=== PATIENT | female | born 1945 | race Caucasian/White ===

== ENCOUNTER 2016-08-26 14:02 | Outpatient (CLI) | payer MEDICARE, BC ==
[2016-08-26 18:52] LABS: BASOPHILS # (AUTO) 0.1 10^3/uL (0.0-0.1); BASOPHILS % (AUTO) 0.6 %; EOSINOPHILS # (AUTO) 0.2 10^3/uL (0.0-0.7); EOSINOPHILS % (AUTO) 1.9 %; HCT - HEMATOCRIT 42.3 % (37.0-47.0); HGB - HEMOGLOBIN 14.2 g/dL (12.0-16.0); LYMPHOCYTES # (AUTO) 2.8 10^3/uL (1.5-3.5); LYMPHOCYTES % (AUTO) 29.6 %; MEAN CORPUSCULAR HEMOGLOBIN 30.1 pg (27.0-31.0); MEAN CORPUSCULAR HGB CONC 33.6 g/dL (32.0-36.0); MEAN CORPUSCULAR VOLUME 89.4 fL (81.0-99.0); MEAN PLATELET VOLUME 8.6 fL (7.9-10.8); MONOCYTES # (AUTO) 0.7 10^3/uL (0.0-1.0); MONOCYTES % (AUTO) 7.3 %; NEUTROPHILS # (AUTO) 5.8 10^3/uL (1.5-6.6); NEUTROPHILS % (AUTO) 60.6 %; RED BLOOD COUNT 4.73 10^6/uL (4.20-5.40); RED CELL DISTRIBUTION WIDTH 12.7 % (12.0-15.0); UNCORRECTED WHITE BLOOD COUNT 9.5 x10^3/uL; WHITE BLOOD COUNT 9.5 x10^3/uL (4.8-10.8)
[2016-08-26 19:11] LABS: HEMOGLOBIN A1C 1.06 g/dL
[2016-08-26 19:17] LABS: ALBUMIN/GLOBULIN RATIO 1.3 (1.0-2.2); BILIRUBIN,TOTAL 1.6 mg/dL (0.2-1.0); BUN - BLOOD UREA NITROGEN 21 mg/dL (6-20); CALCIUM 9.8 mg/dL (8.5-10.3); CARBON DIOXIDE - CO2 26 mmol/L (21-32); CHLORIDE 105 mmol/L (101-111); CHOL/HDL RATIO 2.9 (<4.4); CHOLESTEROL 146 mg/dL; GFR - MDRD 55 (>89); GLUCOSE 146 mg/dL (70-100); HDL CHOLESTEROL 50 mg/dL; LDL/HDL RATIO 1.4 (<4.4); POTASSIUM 3.7 mmol/L (3.5-5.0); SODIUM 142 mmol/L (135-145); TRIGLYCERIDES 139 mg/dL; VLDL CHOLESTEROL 28 mg/dL
== END 2016-08-26 14:03 | disposition home or self-care (01) ==
LOC: LAB.WCP 14:02
PROVIDERS: ATTEND Family Medicine
DX: I10 Essential (primary) hypertension (principal); E11.9 Type 2 diabetes mellitus without complications; E78.5 Hyperlipidemia, unspecified
CPT/HCPCS: 36415; 80053; 80061; 83036; 85025

== ENCOUNTER 2016-09-28 08:45 | Outpatient (CLI) | payer MEDICARE, BC ==
--- NOTE | 2016-09-29 17:02 | Mammography Report ---
DIGITAL SCREENING MAMMOGRAM: 09/28/2016 CLINICAL INDICATION: A 70-year-old for screening. COMPARISON: 08/2015, 04/2014, 03/2013, 12/2011, 11/2010, 10/2009. TECHNIQUE: Routine CC and MLO projections were obtained of the breasts. FINDINGS: Parenchymal tissue within the breasts is predominantly fatty replaced. There are no domina nt masses, suspicious microcalcifications, or secondary signs of malignancy. In comparison to the pre vious studies, there are no significant changes. IMPRESSION: NO MAMMOGRAPHIC EVIDENCE OF MALIGNANCY. NO SIGNIFICANT INTERVAL CHANGES. RECOMMENDATION: Screening mammography is recommended annually. BI-RADS category 1 - negative. STANDARD QUALIFYING STATEMENTS 1. This examination was reviewed with the aid of Computed-Aided Detection (CAD). 2. A negative or benign imaging report should not delay biopsy if clinically suspicious findings are present. Consider surgical consultation if warranted. More than 5% of cancers are not identified by i maging. 3. Dense breasts may obscure an underlying neoplasm. JOB #: [id number] EXT JOB #:[id number]
== END 2016-09-28 08:46 | disposition home or self-care (01) ==
LOC: DI 08:45
PROVIDERS: ATTEND Obstetrics & Gynecology
DX: Z12.31 Encounter for screening mammogram for malignant neoplasm of breast (principal)
CPT/HCPCS: 77067

== ENCOUNTER 2016-11-25 10:50 | Outpatient (CLI) | payer MEDICARE, BC ==
[2016-11-25 13:51] LABS: CHOL/HDL RATIO 2.9 (<4.4); CHOLESTEROL 147 mg/dL; HDL CHOLESTEROL 50 mg/dL; LDL/HDL RATIO 1.5 (<4.4); TRIGLYCERIDES 115 mg/dL; VLDL CHOLESTEROL 23 mg/dL
[2016-11-25 20:07] LABS: HEMOGLOBIN A1C 1.34 g/dL
== END 2016-11-25 10:51 | disposition home or self-care (01) ==
LOC: LAB.WCP 10:50
PROVIDERS: ATTEND Family Medicine
DX: E11.9 Type 2 diabetes mellitus without complications (principal); E78.5 Hyperlipidemia, unspecified; I10 Essential (primary) hypertension
CPT/HCPCS: 36415; 80061; 82043; 83036

== ENCOUNTER 2017-03-14 11:55 | Outpatient (CLI) | payer MEDICARE, BC ==
[2017-03-14 19:19] LABS: BASOPHILS # (AUTO) 0.1 10^3/uL (0.0-0.1); EOSINOPHILS # (AUTO) 0.2 10^3/uL (0.0-0.7); EOSINOPHILS % (AUTO) 2.6 %; HGB - HEMOGLOBIN 13.7 g/dL (12.0-16.0); LYMPHOCYTES # (AUTO) 2.1 10^3/uL (1.5-3.5); LYMPHOCYTES % (AUTO) 26.1 %; MEAN CORPUSCULAR HEMOGLOBIN 29.6 pg (27.0-31.0); MEAN CORPUSCULAR HGB CONC 33.2 g/dL (32.0-36.0); MEAN CORPUSCULAR VOLUME 89.2 fL (81.0-99.0); MEAN PLATELET VOLUME 8.3 fL (7.9-10.8); MONOCYTES # (AUTO) 0.5 10^3/uL (0.0-1.0); MONOCYTES % (AUTO) 6.1 %; NEUTROPHILS # (AUTO) 5.2 10^3/uL (1.5-6.6); NEUTROPHILS % (AUTO) 64.2 %; PLT - PLATELET COUNT 235 10^3/uL (130-450); RED BLOOD COUNT 4.64 10^6/uL (4.20-5.40); RED CELL DISTRIBUTION WIDTH 12.8 % (12.0-15.0); WHITE BLOOD COUNT 8.1 x10^3/uL (4.8-10.8)
[2017-03-14 19:27] LABS: HEMOGLOBIN A1C 1.21 g/dL; HEMOGLOBIN A1C % 9.5 % (4.6-6.2)
[2017-03-14 19:34] LABS: ALBUMIN/GLOBULIN RATIO 1.3 (1.0-2.2); ALKALINE PHOSPHATASE 54 IU/L (42-121); ALT ALANINE AMINOTRANSFERASE 60 IU/L (10-60); AST ASPARTATE AMINOTRANSFERASE 71 IU/L (10-42); BILIRUBIN,TOTAL 1.2 mg/dL (0.2-1.0); BUN - BLOOD UREA NITROGEN 18 mg/dL (6-20); CALCIUM 9.4 mg/dL (8.5-10.3); CARBON DIOXIDE - CO2 26 mmol/L (21-32); CHLORIDE 102 mmol/L (101-111); CHOL/HDL RATIO 2.8 (<4.4); CHOLESTEROL 147 mg/dL; GFR - MDRD 55 (>89); GLUCOSE 196 mg/dL (70-100); HDL CHOLESTEROL 52 mg/dL; LDL CHOLESTEROL,CALCULATED 72 mg/dL; LDL/HDL RATIO 1.4 (<4.4); SODIUM 135 mmol/L (135-145); TOTAL PROTEIN 7.2 g/dL (6.7-8.2); VLDL CHOLESTEROL 23 mg/dL
== END 2017-03-14 11:56 | disposition home or self-care (01) ==
LOC: LAB.WCP 11:55
PROVIDERS: ATTEND Family Medicine
DX: E11.9 Type 2 diabetes mellitus without complications (principal); E78.5 Hyperlipidemia, unspecified; I10 Essential (primary) hypertension
CPT/HCPCS: 36415; 80053; 80061; 83036; 85025

== ENCOUNTER 2017-03-30 23:30 | Outpatient (CLI) | payer MEDICARE, BC | END 2017-03-30 23:31 | disposition home or self-care (01) | LOC: LAB.WCP 23:30 | PROVIDERS: ATTEND Family Medicine | DX: R21 Rash and other nonspecific skin eruption (principal) | CPT/HCPCS: 87070; 87077; 87205 ==

== ENCOUNTER 2017-04-14 12:42 | Outpatient (CLI) | payer MEDICARE, BC | END 2017-04-14 12:43 | disposition home or self-care (01) | LOC: LAB.R 12:42 | PROVIDERS: ATTEND Family Medicine | DX: R21 Rash and other nonspecific skin eruption (principal) | CPT/HCPCS: 87070; 87077; 87205 ==

== ENCOUNTER 2017-08-09 09:37 | Outpatient (CLI) | payer MEDICARE, BC ==
[2017-08-09 13:24] LABS: CREATININE 0.8 mg/dL (0.4-1.0)
== END 2017-08-09 09:38 ==
LOC: LAB.WCP 09:37
PROVIDERS: ATTEND Family Medicine
DX: I10 Essential (primary) hypertension (principal)
CPT/HCPCS: 36415; 80048

== ENCOUNTER 2017-11-09 12:44 | Outpatient (CLI) | payer MEDICARE, BC ==
--- NOTE | 2017-11-10 09:18 | Mammography Report ---
Reason: SCREENING MAMMO Procedure Date: 11/09/2017 Accession Number: [id number] / [id number] Procedure: ANAYA - Screening Mammo Dig Bilat CPT Code: FULL RESULT: EXAM: Screening Mammo Dig Bilat DATE: 11/09/2017 1:40 PM CLINICAL HISTORY: Screening mammogram TECHNIQUE: Bilateral CC and MLO views were obtained. COMPARISON: Mammogram 09/28/2016 FINDINGS: There are scattered fibroglandular densities. There are benign-appearing calcifications and lymph nodes. No suspicious masses, clustered microcalcifications, or regions of architectural distortion are identified. IMPRESSION: Benign findings RECOMMENDATION: Routine annual screening unless otherwise clinically indicated. BIRADS CATEGORY 2: Benign findings STANDARD QUALIFYING STATEMENTS: 1. This examination was reviewed with the aid of Computer-Aided Detection (CAD). 2. A negative or benign imaging report should not delay biopsy if clinically suspicious findings are present. Consider surgical consultation if warrented. More than 5% of cancers are not identified by imaging. 3. Dense breasts may obscure an underlying neoplasm.
== END 2017-11-09 12:45 | disposition home or self-care (01) ==
LOC: DI 12:44
PROVIDERS: ATTEND Radiology Diagnostic Radiology
DX: Z12.31 Encounter for screening mammogram for malignant neoplasm of breast (principal)
CPT/HCPCS: 77067

== ENCOUNTER 2018-01-15 08:00 | Outpatient (CLI) | payer MEDICARE, BC ==
[2018-01-15 16:38] LABS: BASOPHILS % (AUTO) 0.5 %; EOSINOPHILS # (AUTO) 0.3 10^3/uL (0.0-0.7); EOSINOPHILS % (AUTO) 3.2 %; HGB - HEMOGLOBIN 13.7 g/dL (12.0-16.0); LYMPHOCYTES # (AUTO) 2.8 10^3/uL (1.5-3.5); LYMPHOCYTES % (AUTO) 32.8 %; MEAN CORPUSCULAR HEMOGLOBIN 29.8 pg (27.0-31.0); MEAN CORPUSCULAR HGB CONC 32.8 g/dL (32.0-36.0); MEAN CORPUSCULAR VOLUME 90.8 fL (81.0-99.0); MEAN PLATELET VOLUME 8.5 fL (7.9-10.8); MONOCYTES # (AUTO) 0.6 10^3/uL (0.0-1.0); MONOCYTES % (AUTO) 7.5 %; NEUTROPHILS # (AUTO) 4.8 10^3/uL (1.5-6.6); PLT - PLATELET COUNT 247 10^3/uL (130-450); RED BLOOD COUNT 4.61 10^6/uL (4.20-5.40); RED CELL DISTRIBUTION WIDTH 13.1 % (12.0-15.0); WHITE BLOOD COUNT 8.5 x10^3/uL (4.8-10.8)
[2018-01-15 17:12] LABS: ALBUMIN 3.6 g/dL (3.2-5.5); ALBUMIN/GLOBULIN RATIO 1.2 (1.0-2.2); ALKALINE PHOSPHATASE 63 IU/L (42-121); ALT ALANINE AMINOTRANSFERASE 29 IU/L (10-60); AST ASPARTATE AMINOTRANSFERASE 28 IU/L (10-42); BILIRUBIN,TOTAL 1.1 mg/dL (0.2-1.0); BUN - BLOOD UREA NITROGEN 23 mg/dL (6-20); CALCIUM 8.9 mg/dL (8.5-10.3); CARBON DIOXIDE - CO2 27 mmol/L (21-32); CHLORIDE 102 mmol/L (101-111); CHOL/HDL RATIO 2.6 (<4.4); CHOLESTEROL 119 mg/dL; GFR - MDRD 55 (>89); GLUCOSE 163 mg/dL (70-100); HDL CHOLESTEROL 45 mg/dL; LDL CHOLESTEROL,CALCULATED 59 mg/dL; LDL/HDL RATIO 1.3 (<4.4); SODIUM 138 mmol/L (135-145); TOTAL PROTEIN 6.7 g/dL (6.7-8.2); VLDL CHOLESTEROL 15 mg/dL
[2018-01-15 17:24] LABS: HB2 TOTAL 14.5 g/dL; HEMOGLOBIN A1C 1.05 g/dL; HEMOGLOBIN A1C % 8.8 % (4.6-6.2)
== END 2018-01-15 08:01 | disposition home or self-care (01) ==
LOC: LAB.WCP 08:00
PROVIDERS: ATTEND Family Medicine
DX: E78.5 Hyperlipidemia, unspecified (principal); E11.9 Type 2 diabetes mellitus without complications; I10 Essential (primary) hypertension
CPT/HCPCS: 36415; 80053; 80061; 83036; 83721; 85025

== ENCOUNTER 2018-04-30 08:00 | Outpatient (CLI) | payer MEDICARE, BC ==
[2018-04-30 13:27] LABS: BASOPHILS # (AUTO) 0.1 10^3/uL (0.0-0.1); EOSINOPHILS # (AUTO) 0.2 10^3/uL (0.0-0.7); EOSINOPHILS % (AUTO) 2.6 %; HGB - HEMOGLOBIN 13.8 g/dL (12.0-16.0); LYMPHOCYTES # (AUTO) 2.6 10^3/uL (1.5-3.5); LYMPHOCYTES % (AUTO) 33.9 %; MEAN CORPUSCULAR HEMOGLOBIN 29.7 pg (27.0-31.0); MEAN CORPUSCULAR HGB CONC 34.3 g/dL (32.0-36.0); MEAN CORPUSCULAR VOLUME 86.6 fL (81.0-99.0); MEAN PLATELET VOLUME 8.5 fL (7.9-10.8); MONOCYTES # (AUTO) 0.6 10^3/uL (0.0-1.0); NEUTROPHILS # (AUTO) 4.1 10^3/uL (1.5-6.6); NEUTROPHILS % (AUTO) 54.5 %; PLT - PLATELET COUNT 253 10^3/uL (130-450); RED BLOOD COUNT 4.66 10^6/uL (4.20-5.40); RED CELL DISTRIBUTION WIDTH 13.2 % (12.0-15.0); WHITE BLOOD COUNT 7.6 x10^3/uL (4.8-10.8)
[2018-04-30 13:35] LABS: ALBUMIN 3.9 g/dL (3.2-5.5); ALBUMIN/GLOBULIN RATIO 1.1 (1.0-2.2); ALKALINE PHOSPHATASE 60 IU/L (42-121); ALT ALANINE AMINOTRANSFERASE 32 IU/L (10-60); AST ASPARTATE AMINOTRANSFERASE 30 IU/L (10-42); BILIRUBIN,TOTAL 1.4 mg/dL (0.2-1.0); BUN - BLOOD UREA NITROGEN 29 mg/dL (6-20); CHOL/HDL RATIO 2.5 (<4.4); CHOLESTEROL 132 mg/dL; GFR - MDRD 55 (>89); GLUCOSE 204 mg/dL (70-100); HDL CHOLESTEROL 52 mg/dL; LDL CHOLESTEROL,CALCULATED 57 mg/dL; LDL/HDL RATIO 1.1 (<4.4); TOTAL PROTEIN 7.4 g/dL (6.7-8.2); VLDL CHOLESTEROL 23 mg/dL
[2018-04-30 13:44] LABS: CALCIUM 9.3 mg/dL (8.5-10.3); CARBON DIOXIDE - CO2 25 mmol/L (21-32); CHLORIDE 101 mmol/L (101-111); SODIUM 139 mmol/L (135-145)
[2018-04-30 14:22] LABS: HB2 TOTAL 15.2 g/dL; HEMOGLOBIN A1C 1.15 g/dL; HEMOGLOBIN A1C % 9.1 % (4.6-6.2)
== END 2018-04-30 23:59 | disposition home or self-care (01) ==
LOC: LAB.WCP 08:00
PROVIDERS: ATTEND Family Medicine
DX: E78.5 Hyperlipidemia, unspecified (principal); E11.9 Type 2 diabetes mellitus without complications; I10 Essential (primary) hypertension
CPT/HCPCS: 36415; 80053; 80061; 83036; 83721; 85025

== ENCOUNTER 2018-05-04 11:24 | Outpatient (CLI) | payer MEDICARE, BC ==
--- NOTE | 2018-05-04 14:39 | XRAY Report ---
Reason: CERVICAL RADICULOPATHY Procedure Date: 05/04/2018 Accession Number: [id number] / [id number] Procedure: WCP - Shoulder 3 View BILAT CPT Code: FULL RESULT: BILATERAL SHOULDER RADIOGRAPHY EXAM DATE: 05/04/2018 12:00 PM. CLINICAL HISTORY: CERVICAL RADICULOPATHY. COMPARISON: None. TECHNIQUE: 3 views each. FINDINGS: Right: Bones: Posttraumatic changes along the posterior humeral head, prior dislocation. No fracture or bone lesion. Joints: The glenohumeral and acromioclavicular joints are normally located with mild AC joint degenerative changes. Soft tissues: The visualized hemithorax is unremarkable. No soft tissue swelling. Left: Bones: Normal. No fracture or bone lesion. Joints: The glenohumeral and acromioclavicular joints are normally located with mild AC joint degenerative changes. Soft tissues: The visualized hemithorax is unremarkable. No soft tissue swelling. IMPRESSION: No fracture or dislocation. Posttraumatic changes in the right humeral head. RADIA
== END 2018-05-04 11:25 | disposition home or self-care (01) ==
LOC: DI.WCP 11:24
PROVIDERS: ATTEND Family Medicine
DX: M19.011 Primary osteoarthritis, right shoulder (principal); M19.012 Primary osteoarthritis, left shoulder

== ENCOUNTER 2018-08-27 11:29 | Outpatient (CLI) | payer MEDICARE, BC ==
[2018-08-27 18:58] LABS: HB2 TOTAL 14.6 g/dL; HEMOGLOBIN A1C 0.96 g/dL; HEMOGLOBIN A1C % 8.2 % (4.6-6.2)
[2018-08-27 19:04] LABS: ALBUMIN/GLOBULIN RATIO 1.1 (1.0-2.2); ALKALINE PHOSPHATASE 62 IU/L (42-121); ALT ALANINE AMINOTRANSFERASE 27 IU/L (10-60); AST ASPARTATE AMINOTRANSFERASE 25 IU/L (10-42); BILIRUBIN,TOTAL 1.6 mg/dL (0.2-1.0); BUN - BLOOD UREA NITROGEN 34 mg/dL (6-20); CARBON DIOXIDE - CO2 24 mmol/L (21-32); CHLORIDE 102 mmol/L (101-111); CHOL/HDL RATIO 3.1 (<4.4); CHOLESTEROL 160 mg/dL; CREATININE 0.9 mg/dL (0.4-1.0); GFR - MDRD 62 (>89); GLUCOSE 180 mg/dL (70-100); HDL CHOLESTEROL 51 mg/dL; LDL CHOLESTEROL,CALCULATED 84 mg/dL; LDL/HDL RATIO 1.6 (<4.4); SODIUM 139 mmol/L (135-145); TOTAL PROTEIN 7.7 g/dL (6.7-8.2); VLDL CHOLESTEROL 25 mg/dL
== END 2018-08-27 11:30 | disposition home or self-care (01) ==
LOC: LAB.WCP 11:29
PROVIDERS: ATTEND Family Medicine
DX: E11.9 Type 2 diabetes mellitus without complications (principal); E78.5 Hyperlipidemia, unspecified
CPT/HCPCS: 36415; 80053; 80061; 83036; 83721

== ENCOUNTER 2018-12-19 08:43 | Outpatient (CLI) | payer MEDICARE, BC ==
[2018-12-19 09:11] LABS: HGB - HEMOGLOBIN 13.4 g/dL (12.0-16.0); MEAN CORPUSCULAR HEMOGLOBIN 29.5 pg (27.0-31.0); MEAN CORPUSCULAR HGB CONC 33.4 g/dL (32.0-36.0); MEAN CORPUSCULAR VOLUME 88.3 fL (81.0-99.0); MEAN PLATELET VOLUME 9.3 fL (7.9-10.8); RED BLOOD COUNT 4.54 10^6/uL (4.20-5.40); WHITE BLOOD COUNT 7.5 x10^3/uL (4.8-10.8)
[2018-12-19 09:39] LABS: ALBUMIN 3.7 g/dL (3.2-5.5); ALKALINE PHOSPHATASE 58 IU/L (42-121); ALT ALANINE AMINOTRANSFERASE 25 IU/L (10-60); AST ASPARTATE AMINOTRANSFERASE 23 IU/L (10-42); BILIRUBIN,TOTAL 1.2 mg/dL (0.2-1.0); BUN - BLOOD UREA NITROGEN 30 mg/dL (6-20); CALCIUM 9.3 mg/dL (8.5-10.3); CARBON DIOXIDE - CO2 26 mmol/L (21-32); CHLORIDE 104 mmol/L (101-111); CHOL/HDL RATIO 2.7 (<4.4); CHOLESTEROL 159 mg/dL; GFR - MDRD 54 (>89); GLUCOSE 182 mg/dL (70-100); HDL CHOLESTEROL 58 mg/dL; LDL CHOLESTEROL,CALCULATED 87 mg/dL; LDL/HDL RATIO 1.5 (<4.4); SODIUM 140 mmol/L (135-145); TOTAL PROTEIN 7.4 g/dL (6.7-8.2); VLDL CHOLESTEROL 14 mg/dL
[2018-12-19 09:42] LABS: CREATININE,URINE 113.1 mg/dL; MICROALBUM/CREATININE RATIO,UR 11.5 ug/mg (<30.0); MICROALBUMIN,URINE 1.3 mg/dL (0-300.0)
[2018-12-19 10:00] LABS: HB2 TOTAL 14.1 g/dL; HEMOGLOBIN A1C 0.85 g/dL; HEMOGLOBIN A1C % 7.7 % (4.6-6.2)
== END 2018-12-19 08:44 | disposition home or self-care (01) ==
LOC: LAB 08:43
PROVIDERS: ATTEND Nurse Practitioner
DX: I10 Essential (primary) hypertension (principal); E11.59 Type 2 diabetes mellitus with other circulatory complications; E11.69 Type 2 diabetes mellitus with other specified complication; E78.5 Hyperlipidemia, unspecified; E55.9 Vitamin D deficiency, unspecified
CPT/HCPCS: 36415; 80053; 80061; 82043; 82306; 82570; 83036; 83721; 84443; 85027

== ENCOUNTER 2019-01-22 10:24 | Outpatient (CLI) | payer MEDICARE, BC ==
[2019-01-22 11:27] LABS: HB2 TOTAL 13.7 g/dL; HEMOGLOBIN A1C 0.91 g/dL; HEMOGLOBIN A1C % 8.2 % (4.6-6.2)
== END 2019-01-22 10:25 | disposition home or self-care (01) ==
LOC: LAB 10:24
PROVIDERS: ATTEND Nurse Practitioner
DX: E11.59 Type 2 diabetes mellitus with other circulatory complications (principal); I10 Essential (primary) hypertension; E78.5 Hyperlipidemia, unspecified
CPT/HCPCS: 36415; 82947; 83036

== ENCOUNTER 2019-01-22 14:49 | Outpatient (CLI) | payer MEDICARE, BC ==
--- NOTE | 2019-01-23 09:14 | Mammography Report ---
Reason: ROUTINE MAMMO Procedure Date: 01/22/2019 Accession Number: [id number] / [id number] Procedure: ANAYA - Screening Mammo w/Pipo CPT Code: Final Report FULL RESULT: EXAM: Screening Mammo w/Pipo DATE: 01/22/2019 3:52 PM CLINICAL HISTORY: The patient is an asymptomatic 73-year-old female presenting for screening mammography. No reported personal nor family history of breast cancer. TECHNIQUE: (B) - Bilateral CC and MLO views were obtained. COMPARISON: 11/09/2017, 09/28/2016, 09/01/2015, 05/16/2014 and 04/08/1999 PARENCHYMAL PATTERN: (A) - The breasts demonstrate scattered fibroglandular densities bilaterally. FINDINGS: There are no suspicious masses, calcifications, or areas of distortion. IMPRESSION: Negative examination. BI-RADS category 1. RECOMMENDATION: (ANNUAL) - Recommend routine annual screening mammography. BI-RADS CATEGORY: (1) - Negative. STANDARD QUALIFYING STATEMENTS: 1. This examination was not reviewed with the aid of Computer-Aided Detection (CAD). 2. A negative or benign imaging report should not preclude biopsy if clinically suspicious findings are present. 3. Dense breasts may obscure an underlying neoplasm. 4. This examination was reviewed with the aid of 3D breast imaging (tomosynthesis).
== END 2019-01-22 14:50 | disposition home or self-care (01) ==
LOC: DI 14:49
DX: Z12.31 Encounter for screening mammogram for malignant neoplasm of breast (principal)
CPT/HCPCS: 77063; 77067

== ENCOUNTER 2019-04-16 11:45 | Outpatient (CLI) | payer MEDICARE, BC | END 2019-04-16 11:46 | disposition home or self-care (01) | LOC: RT 11:45 | PROVIDERS: ATTEND Podiatrist Foot & Ankle Surgery | DX: Z01.810 Encounter for preprocedural cardiovascular examination (principal) | CPT/HCPCS: 93005 ==

== ENCOUNTER 2019-07-02 08:00 | Outpatient (CLI) | payer MEDICARE, BC ==
[2019-07-02 13:32] LABS: HB2 TOTAL 14.4 g/dL; HEMOGLOBIN A1C 0.95 g/dL; HEMOGLOBIN A1C % 8.2 % (4.6-6.2)
[2019-07-03 13:54] LABS: HGB - HEMOGLOBIN 13.4 g/dL (12.0-16.0); MEAN CORPUSCULAR HGB CONC 32.8 g/dL (32.0-36.0); MEAN CORPUSCULAR VOLUME 91.5 fL (81.0-99.0); RED BLOOD COUNT 4.46 10^6/uL (4.20-5.40); RED CELL DISTRIBUTION WIDTH 12.3 % (12.0-15.0); WHITE BLOOD COUNT 9.3 x10^3/uL (4.8-10.8)
[2019-07-03 13:55] LABS: BASOPHILS % (AUTO) 0.4 %; EOSINOPHILS # (AUTO) 0.2 10^3/uL (0.0-0.7); EOSINOPHILS % (AUTO) 1.9 %; LYMPHOCYTES # (AUTO) 1.9 10^3/uL (1.5-3.5); LYMPHOCYTES % (AUTO) 20.6 %; MEAN PLATELET VOLUME 9.8 fL (7.9-10.8); MONOCYTES # (AUTO) 0.7 10^3/uL (0.0-1.0); MONOCYTES % (AUTO) 7.9 %; NEUTROPHILS # (AUTO) 6.4 10^3/uL (1.5-6.6); NEUTROPHILS % (AUTO) 68.6 %; PLT - PLATELET COUNT 282 10^3/uL (130-450)
[2019-07-03 14:07] LABS: CREATININE 1.3 mg/dL (0.4-1.0)
[2019-07-03 14:08] LABS: ALBUMIN 4.1 g/dL (3.2-5.5); ALBUMIN/GLOBULIN RATIO 1.1 (1.0-2.2); BILIRUBIN,TOTAL 1.5 mg/dL (0.2-1.0); CALCIUM 9.7 mg/dL (8.5-10.3); TOTAL PROTEIN 7.8 g/dL (6.7-8.2)
== END 2019-07-02 23:59 | disposition home or self-care (01) ==
LOC: LAB.WCP 08:00
PROVIDERS: ATTEND Physician Assistant
DX: Z01.812 Encounter for preprocedural laboratory examination (principal); E11.65 Type 2 diabetes mellitus with hyperglycemia
CPT/HCPCS: 36415; 80053; 83036; 85025

== ENCOUNTER 2019-07-15 13:23 | Outpatient (CLI) | payer MEDICARE, BC | END 2019-07-15 13:24 | disposition home or self-care (01) | LOC: COV 13:23 | PROVIDERS: ATTEND Podiatrist Foot & Ankle Surgery | DX: Z01.812 Encounter for preprocedural laboratory examination (principal) | CPT/HCPCS: 81599 ==

== ENCOUNTER 2019-07-17 08:00 | Outpatient (CLI) | payer MEDICARE, BC ==
[2019-07-17 18:04] LABS: ALBUMIN 3.9 g/dL (3.2-5.5); ALBUMIN/GLOBULIN RATIO 1.1 (1.0-2.2); BILIRUBIN,TOTAL 1.3 mg/dL (0.2-1.0); CALCIUM 9.8 mg/dL (8.5-10.3); CREATININE 1.2 mg/dL (0.4-1.0); TOTAL PROTEIN 7.6 g/dL (6.7-8.2)
== END 2019-07-17 23:59 | disposition home or self-care (01) ==
LOC: LAB.WCP 08:00
PROVIDERS: ATTEND Physician Assistant
DX: R94.4 Abnormal results of kidney function studies (principal)
CPT/HCPCS: 36415; 80053

== ENCOUNTER 2019-08-27 15:07 | Outpatient (CLI) | payer MEDICARE, BC ==
[2019-08-27 18:33] LABS: CALCIUM 9.5 mg/dL (8.5-10.3); CREATININE 1.1 mg/dL (0.4-1.0)
== END 2019-08-27 23:59 | disposition home or self-care (01) ==
LOC: LAB.WCP 15:07
PROVIDERS: ATTEND Nurse Practitioner Family
DX: E11.9 Type 2 diabetes mellitus without complications (principal)
CPT/HCPCS: 36415; 80048

== ENCOUNTER 2019-10-17 08:00 | Outpatient (CLI) | payer MEDICARE, BC ==
[2019-10-17 11:54] LABS: ALBUMIN 4.1 g/dL (3.2-5.5); ALBUMIN/GLOBULIN RATIO 1.2 (1.0-2.2); BILIRUBIN,TOTAL 1.3 mg/dL (0.2-1.0); CALCIUM 9.5 mg/dL (8.5-10.3); CREATININE 1.2 mg/dL (0.4-1.0); TOTAL PROTEIN 7.6 g/dL (6.7-8.2)
[2019-10-17 11:56] LABS: HB2 TOTAL 14.7 g/dL; HEMOGLOBIN A1C 0.9 g/dL; HEMOGLOBIN A1C % 7.8 % (4.6-6.2)
== END 2019-10-17 23:59 | disposition home or self-care (01) ==
LOC: LAB.WCP 08:00
PROVIDERS: ATTEND Physician Assistant
DX: E11.9 Type 2 diabetes mellitus without complications (principal)
CPT/HCPCS: 36415; 80053; 83036

== ENCOUNTER 2019-10-23 14:02 | Outpatient (CLI) | payer MEDICARE, BC ==
[2019-10-23 14:18] LABS: BASOPHILS # (AUTO) 0.1 10^3/uL (0.0-0.1); BASOPHILS % (AUTO) 0.5 %; EOSINOPHILS # (AUTO) 0.3 10^3/uL (0.0-0.7); EOSINOPHILS % (AUTO) 2.5 %; LYMPHOCYTES # (AUTO) 2.2 10^3/uL (1.5-3.5); LYMPHOCYTES % (AUTO) 21.9 %; MEAN CORPUSCULAR HEMOGLOBIN 31.7 pg (27.0-31.0); MEAN CORPUSCULAR HGB CONC 34.1 g/dL (32.0-36.0); MEAN PLATELET VOLUME 9.6 fL (7.9-10.8); MONOCYTES # (AUTO) 0.8 10^3/uL (0.0-1.0); MONOCYTES % (AUTO) 7.9 %; NEUTROPHILS # (AUTO) 6.7 10^3/uL (1.5-6.6); NEUTROPHILS % (AUTO) 66.6 %; PLT - PLATELET COUNT 279 10^3/uL (130-450); RED BLOOD COUNT 4.42 10^6/uL (4.20-5.40); RED CELL DISTRIBUTION WIDTH 12.1 % (12.0-15.0); WHITE BLOOD COUNT 10.1 x10^3/uL (4.8-10.8)
[2019-10-23 14:28] LABS: CALCIUM 9.5 mg/dL (8.5-10.3); CREATININE 1.3 mg/dL (0.4-1.0)
== END 2019-10-23 14:03 | disposition home or self-care (01) ==
LOC: LAB 14:02
PROVIDERS: ATTEND Podiatrist Foot & Ankle Surgery
DX: Z01.812 Encounter for preprocedural laboratory examination (principal); I45.10 Unspecified right bundle-branch block
CPT/HCPCS: 36415; 80048; 85025; 93005

== ENCOUNTER → 2019-12-04 | Outpatient (CLI) | payer MEDICARE, BC ==
[2019-12-04 19:02] LABS: BUN - BLOOD UREA NITROGEN 31 mg/dL (6-20); CARBON DIOXIDE - CO2 28 mmol/L (21-32); CHLORIDE 98 mmol/L (101-111); CHOLESTEROL 144 mg/dL; CREATININE 1.3 mg/dL (0.4-1.0); GLUCOSE 141 mg/dL (70-100); HDL CHOLESTEROL 48 mg/dL; LDL CHOLESTEROL,CALCULATED 71 mg/dL; LDL/HDL RATIO 1.5 (<4.4); SODIUM 137 mmol/L (135-145); VLDL CHOLESTEROL 25 mg/dL
[2019-12-04 19:07] LABS: CREATININE,URINE 237.3 mg/dL; MICROALBUM/CREATININE RATIO,UR 4.2 ug/mg (<30.0)
== END ==
LOC: LAB.WCP 10:58
PROVIDERS: ATTEND Physician Assistant
DX: E11.65 Type 2 diabetes mellitus with hyperglycemia (principal); E78.5 Hyperlipidemia, unspecified; E66.9 Obesity, unspecified; I10 Essential (primary) hypertension
CPT/HCPCS: 36415; 80048; 80061; 82043; 82570; 83036; 83721; 84443

== ENCOUNTER 2020-01-10 11:12 | Outpatient (CLI) | payer MEDICARE, BC ==
[2020-01-16 15:37] LABS: HSV 1 IGG TYPE SPECIFIC AB 5.43 index; HSV 2 IGG TYPE SPECIFIC AB <0.90 index
== END 2020-01-10 23:59 ==
LOC: LAB.WCP 11:12
PROVIDERS: ATTEND Physician Assistant
DX: Z20.2 Contact with and (suspected) exposure to infections with a predominantly sexual mode of transmission (principal)
CPT/HCPCS: 36415; 81599; 86695; 86696

== ENCOUNTER 2020-01-24 14:07 | Outpatient (CLI) | payer MEDICARE, BC | END 2020-01-24 14:08 | disposition home or self-care (01) | LOC: COV 14:07 | PROVIDERS: ATTEND Obstetrics & Gynecology | DX: Z01.812 Encounter for preprocedural laboratory examination (principal); N84.1 Polyp of cervix uteri; Z20.828 Contact with and (suspected) exposure to other viral communicable diseases ==

== ENCOUNTER 2020-01-30 06:24 | Day surgery (SDC) | payer MEDICARE, BC ==
[2020-01-30] MEDS ORDERED: GABAPENTIN 400 MG CAPSULE ONE (06:28)
[2020-01-30] MEDS ORDERED: LACTATED RINGERS 1,000 ML IV ONE ×2 (07:02→08:31)
[2020-01-30] MEDS ORDERED: BUPIVACAINE 0.5%-EPI 1:200000 PF 30 ML VIAL ONE (07:25)
--- NOTE | 2020-01-30 07:29 | ANESTHESIA ---
Pre-Anesthesia VS, & Labs - Diagnosis endocervical polyp - Procedure myosure hysteroscopy, D&C Vital Signs: Temp Pulse Resp BP Pulse Ox 36.1 C L 99 16 155/78 H 99 01/30/20 06:30 01/30/20 06:30 01/30/20 06:30 01/30/20 06:30 01/30/20 06:30 Height: 5 ft 6 in Weight (kg): 93.4 kg Body Mass Index: 33.2 BMI Classification: Obese - NPO >8 hours - Is Patient ?: No - Lab Results Current Lab Results: Laboratory Tests 01/30/20 06:45: POC Whole Bld Glucose 160 H Lab results reviewed: Yes Home Medications and Allergies Home Medications: Ambulatory Orders Amlodipine Besylate [Norvasc] 2.5 mg PO DAILY 01/20/20 Cholecalciferol [Vitamin D3] 50 mcg PO DAILY 01/20/20 Cyclobenzaprine [Flexeril] 10 mg PO TID PRN 01/20/20 Estradiol [Estrace] 1 gm VG ONCE 01/20/20 Glipizide 5 mg PO DAILY 01/20/20 Meclizine [Antivert] 12.5 mg PO Q6H PRN 01/20/20 Semaglutide [Ozempic] 2 mg SQ OAW 01/20/20 hydroCHLOROthiazide [Hydrochlorothiazide] 50 mg PO DAILY 01/20/20 Aspirin [Aspir 81] 81 mg PO DAILY 09/12/12 Atorvastatin Calcium [Lipitor] 10 mg PO QPM 09/12/12 Irbesartan [Avapro] 300 mg PO DAILY 09/12/12 Metformin HCl [Metformin HCl ER] 1,000 mg PO DAILY 09/12/12 [place]/Linoleic/Gamoleni [[place]ing [place] 1,000 mg Sftg] 1,000 mg ORAL BID 09/13/12 Calcium Carbonate [Calcium] 600 mg ORAL BID 10/24/13 Fluticasone [Flonase] 1 spray INH BID 10/24/13 Minocycline HCl 100 mg ORAL DAILY 10/24/13 Multivitamin [Multi Vitamin Daily] 1 tab ORAL DAILY 10/24/13 Omeprazole 20 mg PO DAILY 10/24/13 Vit C/Ascorbate Calcium,Sodium [Vitamin C 500 mg/15 ml Liquid] 500 mg ORAL DAILY 08/28/14 metroNIDAZOLE 0.75% GEL 1 applic TOP DAILY PRN 10/24/13 Amlodipine Besylate [Norvasc] 2.5 mg PO DAILY 01/20/20 Cholecalciferol [Vitamin D3] 50 mcg PO DAILY 01/20/20 Cyclobenzaprine [Flexeril] 10 mg PO TID PRN 01/20/20 Estradiol [Estrace] 1 gm VG ONCE 01/20/20 Glipizide 5 mg PO DAILY 01/20/20 Meclizine [Antivert] 12.5 mg PO Q6H PRN 01/20/20 Semaglutide [Ozempic] 2 mg SQ OAW 01/20/20 hydroCHLOROthiazide [Hydrochlorothiazide] 50 mg PO DAILY 01/20/20 Allergies/Adverse Reactions: Allergies Allergy/AdvReac Type Severity Reaction Status Date / Time codeine [Codeine] Allergy Intermediate Hives Verified 01/20/20 15:28 Penicillins AdvReac Mild white Verified 01/20/20 15:28 throat Anes History & Medical History - Anesthetic History Anesthesia Complications: reports: Post-Operative Nausea/Vomiting, Slow wake-up Family history of Anesthesia Complications: Denies Family history of Malignant Hyperthermia: Denies - Medical History Cardiovascular: reports: Hypertension, High cholesterol, Other Pulmonary: reports: None Gastrointestinal: reports: GERD Urinary: reports: Frequency Neuro: reports: Other (neck isssues parasthesias bilat upper extr.) Musculoskeletal: reports: Osteoarthritis, Chronic back pain, Other Endocrine/Autoimmune: reports: Type 2 diabetes, Other Skin: reports: Rosacea - Surgical History General: Colonoscopy, Other Eyes Ears Nose Throat (EENT): Cataracts Orthopedic: Other Exam General: Alert, Oriented x3, Cooperative, No acute distress Dental: WNL Mouth Openin Fingerbreadth Mallampati classification: II Respiratory: Lungs clear, Normal breath sounds, No respiratory distress, No accessory muscle use Cardiovascular: Regular rate, Normal S1, Normal S2, No murmurs Plan Anesthesia Type: MAC Consent for Procedure(s) Verified and Reviewed: Yes Code Status: Attempt Resuscitation ASA classification: 3-Severe systemic disease Is this case an emergency?: No
[2020-01-30] MEDS ORDERED: HYDROmorphone 0.5 MG/0.5 ML SYRINGE IVP PRN (07:31)
[2020-01-30] MEDS ORDERED: METOCLOPRAMIDE 10 MG/2 ML VIAL IVP PRN (07:31)
[2020-01-30] MEDS ORDERED: NALOXONE 0.4 MG/ML VIAL IVP PRN (07:31)
[2020-01-30] MEDS ORDERED: ONDANSETRON 4 MG/2 ML VIAL IVP PRN ×2 (07:31→08:34)
[2020-01-30] MEDS ORDERED: ePHEDrine 50 MG/ML VIAL IVP PRN (07:31)
[2020-01-30] MEDS ORDERED: MORPHINE 2 MG/ML CARPUJECT IVP PRN (07:31)
[2020-01-30] MEDS ORDERED: fentaNYL 100 MCG/2 ML VIAL IVP PRN (07:31)
[2020-01-30] MEDS ORDERED: ATROPINE ABBOJECT 1 MG/10 ML SYRINGE IVP PRN (07:31)
[2020-01-30] MEDS ORDERED: PROPOFOL IVP ONE (07:45)
[2020-01-30] MEDS ORDERED: PROPOFOL 200 MG/20 ML VIAL IVP ONE (07:45)
[2020-01-30] MEDS ORDERED: KETAMINE 500 MG/10 ML VIAL IVP ONE (07:45)
[2020-01-30] MEDS ORDERED: GLYCOPYRROLATE 1 MG/5 ML VIAL IVP ONE (07:45)
[2020-01-30] MEDS ORDERED: LIDOCAINE 1% 50 ML MDV ONE (07:49)
[2020-01-30] MEDS ORDERED: LACTATED RINGERS 1,000 ML IV SCH (08:00)
[2020-01-30] MEDS ORDERED: LIDOCAINE 1% 50 ML MDV SUBQ ONE (08:09)
[2020-01-30] MEDS ORDERED: BUPIVACAINE 0.5%-EPI 1:200000 PF 30 ML VIAL SUBQ ONE (08:11)
[2020-01-30] MEDS ORDERED: oxyCODONE 5 MG TABLET PO PRN (08:34)
--- NOTE | 2020-01-30 08:37 | ANESTHESIA POST OP EVALUATION ---
Anesthesia Post Eval - Post Anesthesia Eval Vitals: Last Vital Signs Temp 36 C L 01/30/20 08:31 Pulse 92 01/30/20 08:31 Resp 22 01/30/20 08:31 BP 128/71 01/30/20 08:31 Pulse Ox 96 01/30/20 08:31 CV Function Including HR & BP: positive: Stable Pain Control: positive: Satisfactory Nausea & Vomiting: positive: Negative Mental Status: positive: Baseline Respiratory Status: Airway Patent Hydration Status: Satisfactory Anesthesia Complications: positive: None (Awake and alert. Appropriate. in Phase 2.)
--- NOTE | 2020-01-30 08:38 | OPERATIVE REPORT ---
Operative Report - General Procedure Performed: Preop: endocervical polyp, postcoital bleeding Postp: same Procedure: D&C, HSC, polyupectomy Surg: lauren Assist: None Anesthesia: MAC EBL minimal IVF 700cc Complications none Specimens: endometrial/endocervical to path Findings: endocervical polyp Dispo: PACU
[2020-01-30 08:53] VITALS: BP 133/69
--- NOTE | 2020-01-30 12:22 | OPERATIVE REPORT ---
DATE OF SERVICE: 01/30/2020 Physician: Alison Garcia MD PREOPERATIVE DIAGNOSES: Cervical polyp and postcoital bleeding. POSTOPERATIVE DIAGNOSES: Cervical polyp and postcoital bleeding. PROCEDURE PERFORMED: Dilation and curettage, hysteroscopy, and hysteroscopic polypectomy. SURGEON: Alison Garcia MD MIX MAKER: None. ANESTHESIA: MAC. ESTIMATED BLOOD LOSS: Minimal. INTRAVENOUS FLUIDS: 700 mL. URINE OUTPUT: Not applicable. COMPLICATIONS: None apparent. DISPOSITION: Stable to recovery room. PROPHYLAXIS: SCDs to bilateral lower extremities. No antibiotics indicated. SPECIMENS: Endometrial and endocervical contents to pathology. DISPOSITION: To PACU and then to home anticipated. CONDITION: Good. FINDINGS: Small endocervical polyp. Normal endometrial cavity shape. Both tubal ostia were seen. No endometrial polyps were present. DESCRIPTION OF PROCEDURE: Patient was brought to the operating room, where she was induced with anesthesia. She was placed in low lithotomy in [facility]. A bimanual examination revealed an anteverted uterus of average size. She was prepped and draped in the usual sterile fashion. A speculum was inserted into the vagina, and the cervix was grasped with a single-tooth tenaculum. Local anesthesia was injected into a paracervical block; a combination of Marcaine, lidocaine, and epinephrine with 5 mm on each side. The cervix was easily dilated to 8 mm with sequential dilators. The hysteroscope was inserted into the uterine cavity, and the findings per above were discovered. The MyoSure light was inserted through the hysteroscope, and the polyp was removed. Diffuse sampling of the endometrium was performed with the MyoSure. The hysteroscope was removed, and a metal curette was used to make one pass in the uterine cavity. Scant blood was yielded. There was no tissue yielded consistent with the patient's findings of atrophy. All instruments were removed from the vagina. Fluid deficit was less than 300 mL. The blood and Betadine was washed from her body, and she was returned to the supine position prior to waking. TD: 01/30/2020 08:49 APRIL
== END 2020-01-30 06:25 | disposition home or self-care (01) ==
LOC: SDS 06:24
PROVIDERS: ATTEND Obstetrics & Gynecology
PROC: 0UDB8ZZ Extraction of Endometrium, Via Natural or Artificial Opening Endoscopic (ICD-10-PCS; 2020-01-30)
PROC: 0UBC8ZZ Excision of Cervix, Via Natural or Artificial Opening Endoscopic (ICD-10-PCS; principal; 2020-01-30 07:30)
DX: N84.1 Polyp of cervix uteri (principal); N93.0 Postcoital and contact bleeding; E66.9 Obesity, unspecified; Z68.33 Body mass index [BMI] 33.0-33.9, adult; I10 Essential (primary) hypertension; E11.9 Type 2 diabetes mellitus without complications; Z79.84 Long term (current) use of oral hypoglycemic drugs
CPT/HCPCS: 58558; A9270; J7120

== ENCOUNTER 2020-01-31 08:00 | Outpatient (CLI) | payer MEDICARE, BC | END 2020-01-31 23:59 | LOC: LAB.WCP 08:00 | PROVIDERS: ATTEND Physician Assistant | DX: B37.3 Candidiasis of vulva and vagina (principal) | CPT/HCPCS: 81599; 87481; 87512; 87661; 87799 ==

== ENCOUNTER 2020-02-26 09:26 | Outpatient (CLI) | payer MEDICARE, BC ==
--- NOTE | 2020-02-27 14:17 | Mammography Report ---
BILATERAL DIGITAL SCREENING MAMMOGRAM 3D/2D: 02/26/2020 CLINICAL: Routine screening. Comparison is made to exams dated: 01/22/2019 mammogram, 11/09/2017 mammogram, 09/28/2016 mammogram, 09/01/2015 mammogram, 05/16/2014 mammogram, and 04/08/2013 mammogram - [facility]. There are scattered fibroglandular elements in both breasts. No significant masses, calcifications, or other findings are seen in either breast. There has been no significant interval change. IMPRESSION: NEGATIVE There is no mammographic evidence of malignancy. A 1 year screening mammogram is recommended. This exam was interpreted at Station ID: [id number]. NOTE: For mammograms, a report in lay terms will be sent to the patient. Approximately 15% of breast malignancies will not be visualized mammographically. In the management of a palpable breast mass, a negative mammogram must not discourage biopsy of a clinically suspicious lesion. Electronically Signed By: Gabe mosher/toyin:02/26/2020 12:37:29 ACR BI-RADS Category 1: Negative 3341F PARENCHYMAL PATTERN: (A) - The breast(s) demonstrate(s) scattered fibroglandular densities. BI-RADS CATEGORY: (1) - 1 RECOMMENDATION: (ANNUAL) - Recommend routine annual screening mammography. [id number] 1 year screening LATERALITY: (B)
== END 2020-02-26 09:27 | disposition home or self-care (01) ==
LOC: DI.N 09:26
DX: Z12.31 Encounter for screening mammogram for malignant neoplasm of breast (principal)

== ENCOUNTER 2020-04-01 08:00 | Outpatient (CLI) | payer MEDICARE, BC ==
[2020-04-01 22:11] LABS: TRICHOMONAS VAGINALIS DNA NEGATIVE (NEGATIVE)
== END 2020-04-01 23:59 | disposition home or self-care (01) ==
LOC: LAB.R 08:00
PROVIDERS: ATTEND Nurse Practitioner
DX: N39.0 Urinary tract infection, site not specified (principal)
CPT/HCPCS: 87491; 87591; 87661

== ENCOUNTER 2020-04-14 08:00 | Outpatient (CLI) | payer MEDICARE, BC ==
[2020-04-14 12:14] LABS: CREATININE,URINE 153.5 mg/dL; MICROALBUM/CREATININE RATIO,UR 3.9 ug/mg (<30.0); MICROALBUMIN,URINE 0.6 mg/dL (0-300.0)
[2020-04-14 12:17] LABS: ALBUMIN 3.8 g/dL (3.2-5.5); ALBUMIN/GLOBULIN RATIO 1.2 (1.0-2.2); BILIRUBIN,TOTAL 1.6 mg/dL (0.2-1.0); CALCIUM 9.2 mg/dL (8.5-10.3); TOTAL PROTEIN 7.1 g/dL (6.7-8.2)
[2020-04-14 12:20] LABS: BASOPHILS % (AUTO) 0.5 %; EOSINOPHILS # (AUTO) 0.2 10^3/uL (0.0-0.7); EOSINOPHILS % (AUTO) 2.6 %; HEMOGLOBIN A1c% 7.3 % (4.27-6.07); HGB - HEMOGLOBIN 13.1 g/dL (12.0-16.0); LYMPHOCYTES # (AUTO) 2.2 10^3/uL (1.5-3.5); LYMPHOCYTES % (AUTO) 27.7 %; MEAN CORPUSCULAR HEMOGLOBIN 29.7 pg (27.0-31.0); MEAN CORPUSCULAR HGB CONC 32.2 g/dL (32.0-36.0); MEAN CORPUSCULAR VOLUME 92.3 fL (81.0-99.0); MEAN PLATELET VOLUME 9.7 fL (7.9-10.8); MONOCYTES # (AUTO) 0.5 10^3/uL (0.0-1.0); MONOCYTES % (AUTO) 6.8 %; NEUTROPHILS # (AUTO) 4.8 10^3/uL (1.5-6.6); NEUTROPHILS % (AUTO) 62.1 %; PLT - PLATELET COUNT 274 10^3/uL (130-450); RED BLOOD COUNT 4.41 10^6/uL (4.20-5.40); RED CELL DISTRIBUTION WIDTH 12.6 % (12.0-15.0); WHITE BLOOD COUNT 7.8 x10^3/uL (4.8-10.8)
== END 2020-04-14 23:59 | disposition home or self-care (01) ==
LOC: LAB.WCP 08:00
PROVIDERS: ATTEND Physician Assistant Medical
DX: E11.8 Type 2 diabetes mellitus with unspecified complications (principal); N39.0 Urinary tract infection, site not specified; R10.9 Unspecified abdominal pain; I10 Essential (primary) hypertension
CPT/HCPCS: 36415; 80053; 82043; 82150; 82570; 83036; 83690; 85025

== ENCOUNTER 2020-07-13 08:00 | Outpatient (CLI) | payer MEDICARE, BC ==
[2020-07-13 12:29] LABS: ALBUMIN 3.8 g/dL (3.2-5.5); ALBUMIN/GLOBULIN RATIO 1.1 (1.0-2.2); ALKALINE PHOSPHATASE 59 IU/L (42-121); ALT ALANINE AMINOTRANSFERASE 25 IU/L (10-60); AST ASPARTATE AMINOTRANSFERASE 26 IU/L (10-42); BILIRUBIN,TOTAL 1.1 mg/dL (0.2-1.0); BUN - BLOOD UREA NITROGEN 25 mg/dL (6-20); CALCIUM 9.7 mg/dL (8.5-10.3); CARBON DIOXIDE - CO2 28 mmol/L (21-32); CHLORIDE 106 mmol/L (101-111); CHOL/HDL RATIO 2.4 (<4.4); CHOLESTEROL 152 mg/dL; CREATININE 1.1 mg/dL (0.4-1.0); GFR - MDRD 49 (>89); GLUCOSE 152 mg/dL (70-100); HDL CHOLESTEROL 64 mg/dL; LDL CHOLESTEROL,CALCULATED 71 mg/dL; LDL/HDL RATIO 1.1 (<4.4); POTASSIUM 4.1 mmol/L (3.5-5.0); SODIUM 144 mmol/L (135-145); TOTAL PROTEIN 7.3 g/dL (6.7-8.2); TRIGLYCERIDES 85 mg/dL; VLDL CHOLESTEROL 17 mg/dL
[2020-07-13 12:40] LABS: ESTIMATED AVERAGE GLUCOSE 163 mg/dL (70-100); HEMOGLOBIN A1c% 7.3 % (4.27-6.07)
== END 2020-07-13 23:59 | disposition home or self-care (01) ==
LOC: LAB.WCP 08:00
PROVIDERS: ATTEND Physician Assistant Medical
DX: E11.8 Type 2 diabetes mellitus with unspecified complications (principal)
CPT/HCPCS: 36415; 80053; 80061; 83036; 83721

== ENCOUNTER 2020-09-29 07:20 | Day surgery (SDC) | payer MEDICARE, BC ==
[2020-09-29] MEDS ORDERED: LACTATED RINGERS 1,000 ML IV ONE ×2 (07:42→09:44)
[2020-09-29] MEDS ORDERED: LIDO GARGLE 30 ML BOTTLE ONE (08:24)
[2020-09-29] MEDS ORDERED: MIDAZOLAM 2 MG/2 ML VIAL ONE ×3 (08:30→09:28)
[2020-09-29] MEDS ORDERED: ONDANSETRON 4 MG/2 ML VIAL ONE (08:30)
[2020-09-29] MEDS ORDERED: fentaNYL 250 MCG/5 ML VIAL ONE (08:30)
[2020-09-29] MEDS ORDERED: LIDO GARGLE 30 ML BOTTLE TOP ONE (08:56)
[2020-09-29] MEDS ORDERED: BENZOCAINE/TETRACAINE/BUTAMBEN 20 GM TOP ONE (08:56)
[2020-09-29 10:44] VITALS: BP 113/60
== END 2020-09-29 07:21 | disposition home or self-care (01) ==
LOC: SDS 07:20
PROVIDERS: ATTEND Surgery
PROC: 0DB28ZX Excision of Middle Esophagus, Via Natural or Artificial Opening Endoscopic, Diagnostic (ICD-10-PCS; 2020-09-29)
PROC: 0DB48ZX Excision of Esophagogastric Junction, Via Natural or Artificial Opening Endoscopic, Diagnostic (ICD-10-PCS; 2020-09-29)
PROC: 0DJD8ZZ Inspection of Lower Intestinal Tract, Via Natural or Artificial Opening Endoscopic (ICD-10-PCS; 2020-09-29)
PROC: 0DB98ZX Excision of Duodenum, Via Natural or Artificial Opening Endoscopic, Diagnostic (ICD-10-PCS; principal; 2020-09-29 08:30)
PROC: 0DB68ZX Excision of Stomach, Via Natural or Artificial Opening Endoscopic, Diagnostic (ICD-10-PCS; 2020-09-29 08:30)
DX: Z12.11 Encounter for screening for malignant neoplasm of colon (principal); K31.7 Polyp of stomach and duodenum; K44.9 Diaphragmatic hernia without obstruction or gangrene; K29.50 Unspecified chronic gastritis without bleeding; K22.0 Achalasia of cardia; K21.00 Gastro-esophageal reflux disease with esophagitis, without bleeding; K57.30 Diverticulosis of large intestine without perforation or abscess without bleeding; K64.8 Other hemorrhoids; K62.2 Anal prolapse; I10 Essential (primary) hypertension; E11.9 Type 2 diabetes mellitus without complications; R42 Dizziness and giddiness; Z79.82 Long term (current) use of aspirin; Z79.84 Long term (current) use of oral hypoglycemic drugs; Z79.899 Other long term (current) drug therapy
CPT/HCPCS: 43239; A9270; G0121; J3010; J7120

== ENCOUNTER 2021-03-08 13:22 | Outpatient (CLI) | payer MEDICARE, BC ==
--- NOTE | 2021-03-09 17:25 | Mammography Report ---
BILATERAL DIGITAL SCREENING MAMMOGRAM 3D/2D: 03/08/2021 CLINICAL: Routine screening. Comparison is made to exams dated: 02/26/2020 mammogram, 01/22/2019 mammogram, and 11/09/2017 mammogr am - [facility]. There are scattered fibroglandular elements in both breasts. No significant masses, calcifications, or other findings are seen in either breast. There has been no significant interval change. IMPRESSION: NEGATIVE There is no mammographic evidence of malignancy. A 1 year screening mammogram is recommended. This exam was interpreted at Station ID: [id number]. NOTE: For mammograms, a report in lay terms will be sent to the patient. Approximately 15% of breast malignancies will not be visualized mammographically. In the management of a palpable breast mass, a negative mammogram must not discourage biopsy of a clinically suspicious lesion. Electronically Signed By: Pola Moreau M.D. [email or web address]:03/08/2021 16:06:16 ACR BI-RADS Category 1: Negative 3341F PARENCHYMAL PATTERN: (A) - The breast(s) demonstrate(s) scattered fibroglandular densities. BI-RADS CATEGORY: (1) - 1 RECOMMENDATION: (ANNUAL) - Recommend routine annual screening mammography. [id number] 1 year screening LATERALITY: (B)
== END 2021-03-08 13:23 | disposition home or self-care (01) ==
LOC: DI.N 13:22
DX: Z12.31 Encounter for screening mammogram for malignant neoplasm of breast (principal)

== ENCOUNTER 2021-12-06 10:00 | Outpatient (CLI) | payer MEDICARE, BC ==
[2021-12-06 12:01] LABS: BASOPHILS % (AUTO) 0.3 %; EOSINOPHILS # (AUTO) 0.1 10^3/uL (0.0-0.7); EOSINOPHILS % (AUTO) 0.6 %; HCT - HEMATOCRIT 43.5 % (37.0-47.0); HGB - HEMOGLOBIN 14.7 g/dL (12.0-16.0); LYMPHOCYTES # (AUTO) 1.2 10^3/uL (1.5-3.5); LYMPHOCYTES % (AUTO) 10.5 %; MEAN CORPUSCULAR HEMOGLOBIN 31.1 pg (27.0-31.0); MEAN CORPUSCULAR HGB CONC 33.8 g/dL (32.0-36.0); MEAN CORPUSCULAR VOLUME 92.2 fL (81.0-99.0); MEAN PLATELET VOLUME 9.6 fL (7.9-10.8); MONOCYTES # (AUTO) 0.7 10^3/uL (0.0-1.0); MONOCYTES % (AUTO) 6.3 %; NEUTROPHILS # (AUTO) 9.6 10^3/uL (1.5-6.6); NEUTROPHILS % (AUTO) 81.9 %; PLT - PLATELET COUNT 257 10^3/uL (130-450); RED BLOOD COUNT 4.72 10^6/uL (4.20-5.40); RED CELL DISTRIBUTION WIDTH 12.5 % (12.0-15.0); WHITE BLOOD COUNT 11.7 x10^3/uL (4.8-10.8)
[2021-12-06 12:26] LABS: ESTIMATED AVERAGE GLUCOSE 151 mg/dL (70-100); HEMOGLOBIN A1c% 6.9 % (4.27-6.07)
[2021-12-06 12:36] LABS: ALBUMIN 4.2 g/dL (3.2-5.5); ALBUMIN/GLOBULIN RATIO 1.2 (1.0-2.2); ALKALINE PHOSPHATASE 57 IU/L (42-121); ALT ALANINE AMINOTRANSFERASE 23 IU/L (10-60); AST ASPARTATE AMINOTRANSFERASE 24 IU/L (10-42); BILIRUBIN,TOTAL 1.8 mg/dL (0.2-1.0); BUN - BLOOD UREA NITROGEN 22 mg/dL (6-20); CALCIUM 9.2 mg/dL (8.5-10.3); CARBON DIOXIDE - CO2 30 mmol/L (21-32); CHLORIDE 99 mmol/L (101-111); CHOL/HDL RATIO 2.5 (<4.4); CHOLESTEROL 158 mg/dL; GFR - MDRD 54 (>89); GLUCOSE 155 mg/dL (70-100); HDL CHOLESTEROL 64 mg/dL; LDL CHOLESTEROL,CALCULATED 72 mg/dL; LDL/HDL RATIO 1.1 (<4.4); POTASSIUM 3.6 mmol/L (3.5-5.0); SODIUM 137 mmol/L (135-145); TOTAL PROTEIN 7.8 g/dL (6.7-8.2); TRIGLYCERIDES 111 mg/dL; VLDL CHOLESTEROL 22 mg/dL
== END 2021-12-06 10:01 | disposition home or self-care (01) ==
LOC: LAB.N 10:00
PROVIDERS: ATTEND Family Medicine
DX: E11.9 Type 2 diabetes mellitus without complications (principal); E78.5 Hyperlipidemia, unspecified
CPT/HCPCS: 36415; 80053; 80061; 83036; 83721; 85025

== ENCOUNTER 2022-01-05 12:28 | Outpatient (CLI) | payer MEDICARE, BC ==
[2022-01-05 17:53] LABS: BASOPHILS # (AUTO) 0.1 10^3/uL (0.0-0.1); BASOPHILS % (AUTO) 0.3 %; EOSINOPHILS # (AUTO) 0.2 10^3/uL (0.0-0.7); EOSINOPHILS % (AUTO) 1.2 %; HCT - HEMATOCRIT 42.3 % (37.0-47.0); HGB - HEMOGLOBIN 13.9 g/dL (12.0-16.0); LYMPHOCYTES # (AUTO) 2.2 10^3/uL (1.5-3.5); LYMPHOCYTES % (AUTO) 15.1 %; MEAN CORPUSCULAR HEMOGLOBIN 30.5 pg (27.0-31.0); MEAN CORPUSCULAR HGB CONC 32.9 g/dL (32.0-36.0); MEAN PLATELET VOLUME 9.7 fL (7.9-10.8); MONOCYTES % (AUTO) 6.8 %; NEUTROPHILS % (AUTO) 76.1 %; PLT - PLATELET COUNT 264 10^3/uL (130-450); RED BLOOD COUNT 4.55 10^6/uL (4.20-5.40); RED CELL DISTRIBUTION WIDTH 12.7 % (12.0-15.0); WHITE BLOOD COUNT 14.5 x10^3/uL (4.8-10.8)
== END 2022-01-05 12:29 | disposition home or self-care (01) ==
LOC: LAB.N 12:28
PROVIDERS: ATTEND Family Medicine
DX: I10 Essential (primary) hypertension (principal); E11.21 Type 2 diabetes mellitus with diabetic nephropathy; D72.829 Elevated white blood cell count, unspecified
CPT/HCPCS: 36415; 82043; 85025

== ENCOUNTER 2022-01-13 15:39 | Outpatient (CLI) | payer MEDICARE, BC ==
[2022-01-13 18:18] LABS: BILIRUBIN,URINE NEGATIVE (NEGATIVE); GLUCOSE, URINE (UA) NEGATIVE (NEGATIVE); KETONES,URINE (UA) NEGATIVE (NEGATIVE); LEUKOCYTE ESTERASE, URINE TRACE (NEGATIVE); NITRITE,URINE NEGATIVE (NEGATIVE); OCCULT BLOOD,URINE NEGATIVE (NEGATIVE); PH,URINE 5.5 PH (5.0-7.5); PROTEIN,URINE NEGATIVE (NEGATIVE); UROBILINOGEN,URINE 0.2 (NORMAL) E.U./dL (NORMAL)
[2022-01-13 18:34] LABS: BACTERIA,URINE Few /HPF (None Seen); CLARITY,URINE HAZY (CLEAR); RBC,URINE 0-5 /HPF (0-5); SQUAMOUS EPITHELIAL CELL,UR MANY Squamous (<= Few)
== END 2022-01-13 15:40 | disposition home or self-care (01) ==
LOC: LAB.N 15:39
PROVIDERS: ATTEND Family Medicine
DX: N39.0 Urinary tract infection, site not specified (principal); D72.829 Elevated white blood cell count, unspecified
CPT/HCPCS: 81001; 87086

== ENCOUNTER 2022-03-08 09:51 | Outpatient (CLI) | payer MEDICARE, BC ==
[2022-03-08 12:18] LABS: ESTIMATED AVERAGE GLUCOSE 157 mg/dL (70-100); HEMOGLOBIN A1c% 7.1 % (4.27-6.07)
[2022-03-08 12:24] LABS: THYROID STIMULATING HORMONE 1.29 uIU/mL (0.34-5.60)
[2022-03-08 12:25] LABS: ALBUMIN 4.1 g/dL (3.2-5.5); ALBUMIN/GLOBULIN RATIO 1.1 (1.0-2.2); ALKALINE PHOSPHATASE 59 IU/L (42-121); ALT ALANINE AMINOTRANSFERASE 24 IU/L (10-60); AST ASPARTATE AMINOTRANSFERASE 25 IU/L (10-42); BILIRUBIN,TOTAL 1.5 mg/dL (0.2-1.0); BUN - BLOOD UREA NITROGEN 25 mg/dL (6-20); CALCIUM 9.4 mg/dL (8.5-10.3); CARBON DIOXIDE - CO2 28 mmol/L (21-32); CHLORIDE 100 mmol/L (101-111); CHOL/HDL RATIO 2.4 (<4.4); CHOLESTEROL 154 mg/dL; GFR - MDRD 54 (>89); GLUCOSE 153 mg/dL (70-100); HDL CHOLESTEROL 63 mg/dL; LDL CHOLESTEROL,CALCULATED 77 mg/dL; LDL/HDL RATIO 1.2 (<4.4); POTASSIUM 3.9 mmol/L (3.5-5.0); SODIUM 138 mmol/L (135-145); TOTAL PROTEIN 7.7 g/dL (6.7-8.2); TRIGLYCERIDES 70 mg/dL; VLDL CHOLESTEROL 14 mg/dL
== END 2022-03-08 09:52 | disposition home or self-care (01) ==
LOC: LAB.N 09:51
PROVIDERS: ATTEND Family Medicine
DX: E11.21 Type 2 diabetes mellitus with diabetic nephropathy (principal); E78.5 Hyperlipidemia, unspecified; R23.2 Flushing
CPT/HCPCS: 36415; 80053; 80061; 83036; 83721; 84443

== ENCOUNTER 2022-06-17 11:32 | Outpatient (CLI) | payer MEDICARE, BC ==
[2022-06-17 18:01] LABS: CREATININE,URINE 369.9 mg/dL; MICROALBUM/CREATININE RATIO,UR 7.6 ug/mg (<30.0); MICROALBUMIN,URINE 2.8 mg/dL (0-300.0)
[2022-06-17 18:12] LABS: ALBUMIN 4.2 g/dL (3.2-5.5); ALBUMIN/GLOBULIN RATIO 1.2 (1.0-2.2); BILIRUBIN,TOTAL 1.4 mg/dL (0.2-1.0); CALCIUM 9.5 mg/dL (8.5-10.3); POTASSIUM 3.7 mmol/L (3.5-5.0); TOTAL PROTEIN 7.6 g/dL (6.7-8.2)
[2022-06-17 21:49] LABS: ESTIMATED AVERAGE GLUCOSE 163 mg/dL (70-100); HEMOGLOBIN A1c% 7.3 % (4.27-6.07)
== END 2022-06-17 11:33 | disposition home or self-care (01) ==
LOC: LAB.N 11:32
PROVIDERS: ATTEND Nurse Practitioner Family
DX: E08.9 Diabetes mellitus due to underlying condition without complications (principal)
CPT/HCPCS: 36415; 80053; 82043; 82570; 83036